=== PATIENT | female | born 1990 | race African-American/Black ===

== ENCOUNTER 2017-12-16 07:10 | Inpatient (IN) ==
[2017-12-16] MEDS ORDERED: ceFAZolin 2,000 MG in PREMIX 1 EACH IV ONE (07:56)
[2017-12-16] MEDS ORDERED: CITRIC ACID/SODIUM CITRATE 30 ML UDCUP PO ONE (07:58)
[2017-12-16] MEDS ORDERED: FAMOTIDINE 20 MG/2 ML VIAL IV ONE (07:58)
[2017-12-16] MEDS ORDERED: LACTATED RINGERS 1,000 ML IV ONE (07:58)
[2017-12-16] MEDS ORDERED: LACTATED RINGERS 1,000 ML IV SCH ×3 (08:00→14:30)
[2017-12-16 08:51] LABS: Basophils % 0.2 % (0.0-0.8); Eosinophils % 0.2 % (0.00-10.9); Hematocrit 32.4 VOL% (35.7-47.0); Hemoglobin 10.3 GM/DL (12.0-16.0); Immature Granulocytes % 0.7 %; Immature Granulocytes Absolute 0.06 #; Lymphocytes # 1.6 10*3/uL (1.4-4.0); Mean Corpuscular HGB Conc 31.8 GM/DL (32-36); Mean Corpuscular Hemoglobin 28 PG (27-34); Mean Corpuscular Volume 86.6 FL (87-102); Mean Platelet Volume 10.3 FL (9.6-12.0); Monocytes # 0.7 10*3/uL (0.11-0.8); Monocytes % 7.5 % (1.7-12.7); Neutrophils # 6.4 10*3/uL (1.4-7.4); Neutrophils % 73.4 % (38.7-73.9); Platelet Count 228 T/CUMM (130-400); Red Blood Count 3.74 MC/CUMM (3.8-5.5); Red Cell Distribution Width 14.3 % (9.3-17.3); White Blood Count 8.7 T/CUMM (4-12)
[2017-12-16 09:28] LABS: Albumin 2.6 G/DL (3.4-5.0); Bilirubin,Total 0.4 MG/DL (0.2-1.0); Calcium 8.4 MG/DL (8.5-10.1); Osmolality,Calculated 272.5 MOS/KG (273-304); Potassium 3.4 MMOL/L (3.5-5.1); Total Protein 6.4 G/DL (6.4-8.3)
[2017-12-16] MEDS ORDERED: OXYTOCIN/LR 30 UNIT/1,000 ML BAG IV ONE (12:00)
[2017-12-16] MEDS ORDERED: OXYTOCIN 10 UNIT/ML VIAL IM ONE (12:00)
[2017-12-16 13:28] LABS: Cord Arterial Blood HCO3 22.3 MMOL/L
[2017-12-16 13:29] LABS: Cord Venous Blood HCO3 23.9 MMOL/L; Cord Venous Blood PO2 32.4 MMHG
[2017-12-16 13:38] LABS: Apearance,Urine CLEAR (Clear); Bilirubin,Urine Negative (Negative); Blood, Urine Negative (Negative); Glucose,Urine (UA) Negative (Negative); Ketones,Urine 80 mg/dL (Negative); Mucus,Urine Few /LPF (Occasional); Nitrite,Urine Negative (Negative); Protein,Urine 30 MG/DL; RBC,Urine 2 /HPF (0-4); Squamous Epithelial Cell,Urine Occasional /HPF (0-10); Urine Color Yellow (Yellow); Urine Specific Gravity 1.026 (1.001-1.035); WBC,Urine 1 /HPF (0-6)
[2017-12-16] MEDS ORDERED: ONDANSETRON 4 MG/2 ML VIAL ONE (13:47)
[2017-12-16] MEDS ORDERED: BUPIVACAINE SPINAL 0.75% 2 ML AMP SPINAL ONE (13:47)
[2017-12-16] MEDS ORDERED: MORPHINE 10 MG/10 ML VIAL ONE (13:47)
[2017-12-16] MEDS ORDERED: OXYTOCIN/LR 20 UNIT/1,000 ML BAG IV ONE (14:07)
[2017-12-16] MEDS ORDERED: ACETAMINOPHEN 325 MG TABLET PO PRN (14:07)
[2017-12-16] MEDS ORDERED: ONDANSETRON 4 MG/2 ML VIAL IV PRN (14:07)
[2017-12-16] MEDS ORDERED: RHO(D) IMMUNE GLOBULIN 300 MCG SYRINGE IM ONE (14:07)
[2017-12-16] MEDS ORDERED: diphenhydrAMINE 50 MG/1 ML VIAL IV ONE (14:55)
[2017-12-16 17:23] LABS: Hematocrit 29.8 VOL% (35.7-47.0); Hemoglobin 9.6 GM/DL (12.0-16.0)
[2017-12-16] MEDS ORDERED: MEPERIDINE 50 MG/1 ML VIAL IV PRN (19:26)
[2017-12-16] MEDS: ceFAZolin 1,000 MG in SYRINGE 1 EACH IV SCH (21:06)
[2017-12-16] MEDS: DOCUSATE SODIUM 100 MG CAPSULE PO SCH (21:10)
[2017-12-16] MEDS: diphenhydrAMINE 50 MG/1 ML VIAL IV PRN (21:12)
[2017-12-17] MEDS: IBUPROFEN 800 MG TABLET PO PRN ×3 (02:22→21:31)
[2017-12-17] MEDS: diphenhydrAMINE 50 MG/1 ML VIAL IV PRN (03:02)
[2017-12-17] MEDS: ceFAZolin 1,000 MG in SYRINGE 1 EACH IV SCH (05:12)
[2017-12-17] MEDS ORDERED: ceFAZolin 1,000 MG in SYRINGE 1 EACH IV SCH (05:30)
[2017-12-17 06:24] LABS: Basophils % 0.2 % (0.0-0.8); Eosinophils % 0.3 % (0.00-10.9); Hematocrit 23.9 VOL% (35.7-47.0); Hemoglobin 7.6 GM/DL (12.0-16.0); Immature Granulocytes % 0.4 %; Immature Granulocytes Absolute 0.04 #; Lymphocytes # 1.2 10*3/uL (1.4-4.0); Lymphocytes % 11.8 % (21.3-54.2); Mean Corpuscular HGB Conc 31.8 GM/DL (32-36); Mean Corpuscular Hemoglobin 28 PG (27-34); Mean Corpuscular Volume 87.9 FL (87-102); Mean Platelet Volume 10.1 FL (9.6-12.0); Monocytes # 0.7 10*3/uL (0.11-0.8); Monocytes % 7.3 % (1.7-12.7); Neutrophils # 7.8 10*3/uL (1.4-7.4); Platelet Count 165 T/CUMM (130-400); Red Blood Count 2.72 MC/CUMM (3.8-5.5); Red Cell Distribution Width 14.3 % (9.3-17.3); White Blood Count 9.8 T/CUMM (4-12)
[2017-12-17] MEDS ORDERED: SODIUM CHLORIDE 0.9% 1,000 ML IV PRN (09:42)
[2017-12-17] MEDS: DOCUSATE SODIUM 100 MG CAPSULE PO SCH ×2 (11:21→20:27)
[2017-12-17] MEDS: MULTIVITAMIN (PRENATAL) TABLET PO SCH (11:21)
[2017-12-17] MEDS: oxyCODONE/ACETAMINOPHEN 5-325 MG TABLET PO PRN (19:02)
[2017-12-17 19:08] LABS: Hemoglobin 9.5 GM/DL (12.0-16.0)
[2017-12-17] MEDS: MAGNESIUM HYDROXIDE SUSP 30 ML UDCUP PO PRN (20:27)
[2017-12-18] MEDS: oxyCODONE/ACETAMINOPHEN 5-325 MG TABLET PO PRN ×4 (01:06→21:01)
[2017-12-18] MEDS: IBUPROFEN 800 MG TABLET PO PRN ×2 (06:43→15:02)
[2017-12-18] MEDS: SIMETHICONE CHEW 80 MG TABLET PO PRN (08:24)
[2017-12-18] MEDS: MULTIVITAMIN (PRENATAL) TABLET PO SCH (08:25)
[2017-12-18] MEDS: MAGNESIUM HYDROXIDE SUSP 30 ML UDCUP PO PRN ×2 (08:25→21:01)
[2017-12-18] MEDS: DOCUSATE SODIUM 100 MG CAPSULE PO SCH ×2 (08:29→21:01)
[2017-12-18] MEDS ORDERED: ceFAZolin 1,000 MG in SYRINGE 1 EACH IV SCH (16:00)
[2017-12-19] MEDS: oxyCODONE/ACETAMINOPHEN 5-325 MG TABLET PO PRN ×2 (03:35→09:56)
[2017-12-19 07:15] VITALS: BP 111/53
[2017-12-19] MEDS: DOCUSATE SODIUM 100 MG CAPSULE PO SCH (08:46)
[2017-12-19] MEDS: IBUPROFEN 800 MG TABLET PO PRN (08:46)
[2017-12-19] MEDS: MULTIVITAMIN (PRENATAL) TABLET PO SCH (08:47)
[2017-12-19] MEDS: SIMETHICONE CHEW 80 MG TABLET PO PRN (08:49)
== END 2017-12-19 13:05 | disposition home or self-care (01) | DRG 540 ==
LOC: N.LDOUT 07:10 → N.LD 07:18 → N.OB 16:04
PROVIDERS: ADMIT Obstetrics & Gynecology; ATTEND Obstetrics & Gynecology
PROC: LDCSECT (ICD-10-PCS; 2017-12-16 09:00)